=== PATIENT | male | born 1965 | race Caucasian/White ===

== ENCOUNTER 2024-04-17 15:34 | Outpatient (REF) | payer OTHER, SELFPAY ==
[2024-04-17 17:06] LABS: Hematocrit 42.2 % (42.0-52.0); Hemoglobin 14.5 g/dl (14.0-18.0); Mean Corpuscular HGB Conc 34.4 g/dl (31.0-36.0); Mean Corpuscular Volume 90.2 fL (80.0-98.0); Mean Platelet Volume 9.4 fL (9.4-12.4); Platelet Count 284 X10*3/uL (160-400); Red Blood Count 4.68 X10*6/uL (4.60-5.80); Red Cell Distribution Width 13.4 % (11.0-16.0); White Blood Count 8.4 X10*3/uL (4.8-10.8)
[2024-04-17 17:33] LABS: Alanine Aminotransferase 30 U/L (0-40); Albumin Level 4.6 g/dL (3.5-5.0); Aspartate Amino Transferase 28 U/L (5-37); Bilirubin Direct 0.2 mg/dL (0.0-0.5); Bilirubin Total 0.4 mg/dL (0.0-1.0)
[2024-04-17 17:48] LABS: Alkaline Phosphatase 58 U/L (39-117)
[2024-04-19 13:58] LABS: Immunoglobulin A 209 mg/dL (47-310)
[2024-04-19 16:18] LABS: Transglutaminase IgA <1.0 U/mL
== END 2024-04-17 15:35 | disposition home or self-care (01) ==
LOC: HO.LAB 15:34
PROVIDERS: PCP Registered Nurse; Visit Provider Internal Medicine
DX: R10.84 Generalized abdominal pain (principal); R12 Heartburn; K21.9 Gastro-esophageal reflux disease without esophagitis
CPT/HCPCS: 36415; 80076; 82784; 84443; 85027; 86364; 99202

== ENCOUNTER 2024-06-06 08:39 | Outpatient (REF) | payer OTHER, SELFPAY ==
--- NOTE | ~2024-06-06 | US_ITS ---
CLINICAL HISTORY: R10.84 - Generalized abdominal pain US abdomen complete Comparison: None Findings: The visualized pancreas is normal. The aorta and inferior vena cava are normal caliber. The appearance of the liver suggests fatty infiltration without focal lesion. There is no intrahepatic bile duct dilatation. The common duct is 3.5 mm in diameter. The gallbladder is normal. There is no sonographic Tompkins sign. The main portal vein is antegrade. The right kidney is 10.1 cm in length. The left kidney is 11.7 cm in length. The spleen is normal. No ascites. IMPRESSION: 1. Hepatic steatosis. This document has been electronically signed by: Yan Irwin MD on 06/06/2024 18:21:56
== END 2024-06-06 08:40 | disposition home or self-care (01) ==
LOC: HO.HMGCX 08:39
PROVIDERS: PCP Registered Nurse; Visit Provider Internal Medicine
DX: R10.84 Generalized abdominal pain (principal)
CPT/HCPCS: 76700

== ENCOUNTER → 2024-06-06 08:49 | Outpatient (BNV) | payer OTHER, SELFPAY | PROVIDERS: PCP Registered Nurse; Visit Provider Specialist | DX: R10.84 Generalized abdominal pain (principal) | CPT/HCPCS: 76700 ==

== ENCOUNTER 2024-09-20 10:11 | Day surgery (SDC) | payer OTHER, SELFPAY ==
--- OUTSIDE RECORDS SUMMARY | 2024-07-30 15:13 | XMS_ITS | Clinical Summary ---
Author Organization [facility] Address [address] [place] [address] Care Team Providers Care Pier Master Name Role Phone Unavailable Primary Care Provider Unavailabl e Source Comments PLEASE NOTE, if this patient is a minor, it may be UNLAWFUL to discuss sensitive information that is contained in these records (such as FAMILY PLANNING, MENTAL HEALTH or SUBSTANCE ABUSE) with the minor patient's parent or other person without the patient's specific authorization.[facility] Social History Tobacco Use Types Packs/Day Years Used Date Smoking Tobacco: Never Assessed Social Connections Answer Date Recorded Connectedness 0 11/25/2023 Financial Resource Strain Answer Date R ecorded Financial Resource Strain 0 2022 Stress Answer Date Recorded Stress 0 03/21/2022 Physical Activity Answer Date Recorded Physical Activity 0 03/21/2022 Food Insecurity Answer Date Recorded Food 0 12/07/2023 Transportation Needs Answer Date Record ed Transportation 0 03/21/2022 Housing Stability Answer Date Recorded Housing 0 03/21/2022 Safety and Environment Answer Date Ignacio rded Safety 0 03/21/2022 Utilities Answer Date Recorded Utilities 0 03/21/2022 Employment Answer Date Recorded Stress 0 11/25/2023 Sex and Gender Information Value Date Recorded Sex Assigned at Not on file Legal Sex Male 8:24 AM PST Gender Identity Not on file Sexual Orientation Not on file Plan of Treatment Health Maintenance Due Date Last Done Comments Anxiety Screening 1966 Diabetes Screening 1966 Hepatitis C Screening 1966 Lipid Screening 1966 Tobacco Screening 1966 HIV Screening 1981 Hypertension Screening (#1) 1984 Imm-DTaP/Tdap/Td (1 - Tdap) 1985 Imm-Hepatitis B (1 of 3 - 19+ 3-dose series) 6 CT Colonography 12/26/2011 Colonoscopy 12/26/2011 Colorectal Cancer Screening 12/26/2011 FIT/gFOBT 12/26/2011 Fecal DNA 12/26/2011 Flexible Sigmoidoscopy 12/26/2011 Imm-Zoster, Recombinant (1 of 2) 2016 [id number] ( season) 2023 Imm-Influenza (#1) 2023 Alcohol and Drug Screen 03/13/2024 Depression Annual Screen 03/13/2024
[2024-09-18 14:47] VITALS: BMI 28.2
--- NOTE | 2024-09-18 15:22 | P.CONAN_ITS ---
Documented by User: Dania Deleon NP 09/18/24 15:25 HPI - Anesthesia Eval Consult details Narrative: 58 yr old male for Upper Endoscopy. [facility] Active Problems Active Problems: All Active Problems (Updated 09/18/24 @ 14:45 by Azul Atwood RN) GERD (gastroesophageal reflux disease) (Acute) Pyrosis (Acute) Generalized postprandial abdominal pain (Acute) Past Medical History Medical History (Updated 09/18/24 @ 14:45 by Azul Atwood RN) GERD (gastroesophageal reflux disease) Family History Family History Father HTN (hypertension) Stroke Mother HTN (hypertension) Stroke Brother Stroke Brother Tongue cancer Brother Lung cancer Surgical History Surgical History (Updated 09/20/24 @ 11:48 by Lou Toledo RN) No pertinent past surgical history Hx of wisdom tooth extraction Social History Social History Household Members: Family Are you a primary interior plant caretaker to a significant other at home: No Do you presently have visiting nurse or other home services: No Alcohol intake: current Alcohol intake frequency: holidays/special occasions only Patient Tobacco Use Status: Current everyday Tobacco user Tobacco use type: Cigarette Cigarettes Per Day: 2 Years Smoked: 30 Smoked in Last 30 Days: Yes Use of substances other than those prescribed or required for medical reasons: No Have you been hit, kicked, punched, or otherwise hurt by someone within the past year? If so, by whom?: No Are you DNR?: No Advance Directives: No Advance Directives Information Provided: No Advance Directives on File: No Meds Allergies Allergy/AdvReac Type Severity Reaction Status Date / Time No Known Allergies Allergy Verified 09/20/24 11:46 Exam Height,Weight and Vital Signs: Height 5 ft 3 in Weight 72.121 kg Documented by User: Kirill Treviño MD 09/20/24 12:25 [facility] Past Medical History Medical History (Updated 09/18/24 @ 14:45 by Azul Atwood RN) GERD (gastroesophageal reflux disease) Family History Family History Father HTN (hypertension) Stroke Mother HTN (hypertension) Stroke Brother Stroke Brother Tongue cancer Brother Lung cancer Family history of problems with anesthesia: No Surgical History Surgical History (Updated 09/20/24 @ 11:48 by Lou Toledo RN) No pertinent past surgical history Hx of wisdom tooth extraction History of Problems with Anesthesia: No Social History Social History Household Members: Family Are you a primary interior plant caretaker to a significant other at home: No Do you presently have visiting nurse or other home services: No Alcohol intake: current Alcohol intake frequency: holidays/special occasions only Patient Tobacco Use Status: Current everyday Tobacco user Tobacco use type: Cigarette Cigarettes Per Day: 2 Years Smoked: 30 Smoked in Last 30 Days: Yes Use of substances other than those prescribed or required for medical reasons: No Have you been hit, kicked, punched, or otherwise hurt by someone within the past year? If so, by whom?: No Are you DNR?: No Advance Directives: No Advance Directives Information Provided: No Advance Directives on File: No Meds Allergies Allergy/AdvReac Type Severity Reaction Status Date / Time No Known Allergies Allergy Verified 09/20/24 11:46 Exam Airway Mallampati Class: I TM Dist: <=3cm Neck ROM: Full Loose/Missing/Broken Teeth: No Heart: ok Lungs: ok Assessment and Plan Assessment Anesthesia Assessment: Anesthesia Plan Discussed and Chart Reviewed Final Anesthetic Review Family History of Problems with Anesthesia: No History of Problems with Anesthesia: No NPO: Yes ASA Class: II Final Preanesthetic Review: No Changes in Pt Med Stat, Meds/Allgs Chart Reviewed, Consent Obtained/Reviewed and Anes Risks/Benef Reviewed Patient Risk: Intermediate Procedure Risk: Intermediate Anesthetic Plan Anesthetic Plan: Agree w/ Assess. and Plan and TIVA Disposition: Standard PACU
[2024-09-20 11:49] VITALS: BP 137/73; PULSE 68; RESP 16; TEMP 36.4; O2SAT 98; BMI 27.5
--- NOTE | 2024-09-20 12:03 | P.HPSUR_ITS ---
Pre-Procedural Eval Section A - 24 Hr Update-Section A only Date of Service: 09/20/24 Section B - Complete if H&P > 30 days Chief Complaint: Gastro-esophageal reflux disease without esophagit Details of Present Illness: Family History Father HTN (hypertension) Stroke Mother HTN (hypertension) Stroke Brother Stroke Brother Tongue cancer Brother Lung cancer Allergies: Allergies Allergy/AdvReac Type Severity Reaction Status Date / Time No Known Allergies Allergy Verified 09/20/24 11:46 Review of Systems Review of Systems Comment: Ten point ROS negative Exam Exam Comment: Gen appear: No acute distress HEENT: no icterus Chest: No overt resp distress Abd: soft, nontender, nondistended Psych: Stable affect, answering questions appropriately Neuro: A/Ox3 noted to move all extremities spontaneously Ext: no peripheral edema Plan Diagnosis/Plan: Unchanged I have reviewed the history and physical and performed a pertinent physical examination on my patient. No changes have occurred unless specified. Time Spent With Patient Time: Total time managing care of this patient today ____ minutes.
[2024-09-20] MEDS: Lactated Ringers 1,000 ML 100 ML IVCONT (12:10)
--- NOTE | 2024-09-20 13:18 | P.OP_ITS ---
Operative Note Operative Note Date of Service: 09/20/24 Narrative: Procedure: Esophagogastroduodenoscopy Endoscopist: Aissatou Wylie MD Indication: GERD Anesthesia Provider: Kirill Treviño MD Anesthesia Type: MAC ?? EGD Procedure:?? The procedure, indications, preparation and potential complications were reviewed with the patient with the help of Togolese costumer, who indicated understanding and gave written informed consent to proceed. A physical exam was performed. The endoscope was introduced through the mouth, and advanced to the second part of duodenum. The mucosa was carefully examined on slow withdrawal of the endoscope. The patient tolerated the procedure well. There were no immediate complications.? ? EGD Findings:? * Esophagus:? Small erosions measuring less than 5 mm noted at GE junction.. The Z line was at 34 cm and irregular to 33 cm. Cold forceps biopsies were taken from the GE junction rule out Cole's esophagus. , moderate size hiatal hernia was noted with a diaphragmatic pinch at 40 cm. * Stomach:? Normal mucosa was noted in the stomach. Retroflexion was performed in the cardia that showed Hill grade 3 hiatal hernia. * Duodenum:? Normal mucosa was noted in the whole of the examined duodenum. ? EGD Impressions:? * Grade A esophagitis. * Irreglar Z line r/o BE (biopsy) * Normal stomach (biopsy) * Normal duodenum ?? Recommendations:?? * Follow biopsy results. Our office will call or send a letter with results within 7-10 days. * Continue PPI therapy. * If H pylori +, patient will be prescribed eradication therapy followed by test of cure. * Avoid NSAIDs. Above has been reviewed with the patient.
[2024-09-20 13:20] VITALS: BP 107/64; PULSE 82; RESP 18; TEMP 36.5; O2SAT 94
[2024-09-20 13:35] VITALS: BP 114/73; PULSE 73; RESP 16; O2SAT 96
--- NOTE | 2024-09-20 14:43 | HO.INF ---
Dutch grid caster utilized
== END 2024-09-20 15:33 | disposition home or self-care (01) ==
PROVIDERS: PCP Registered Nurse; Visit Provider Internal Medicine
PROC: 0DJ08ZZ Inspection of Upper Intestinal Tract, Via Natural or Artificial Opening Endoscopic (ICD-10-PCS; CPT 43235; principal; 2024-09-20 12:40)
DX: K21.9 Gastro-esophageal reflux disease without esophagitis (principal); K29.60 Other gastritis without bleeding; K22.10 Ulcer of esophagus without bleeding; K22.9 Disease of esophagus, unspecified; K44.9 Diaphragmatic hernia without obstruction or gangrene; F17.210 Nicotine dependence, cigarettes, uncomplicated; Z79.899 Other long term (current) drug therapy
CPT/HCPCS: 43239; 88305; 88313; 88342; J2003; J2704

== ENCOUNTER → 2024-09-20 10:11 | Outpatient (BNV) | payer OTHER, SELFPAY | PROVIDERS: PCP Registered Nurse; Visit Provider Internal Medicine | DX: K21.00 Gastro-esophageal reflux disease with esophagitis, without bleeding (principal); K22.89 Other specified disease of esophagus | CPT/HCPCS: 43239 ==

== ENCOUNTER 2024-10-14 10:42 | Outpatient (AMB) | payer OTHER, SELFPAY ==
[2024-10-14 10:43] VITALS: BP 139/79; PULSE 71; BMI 26.9
--- NOTE | 2024-10-14 10:43 | MHC.OFFVIS ---
Vital Signs 10/14/24 10:43 Height 5 ft 3 in Weight 152 lb 1.903 oz BMI 26.9 BP 139/79 Blood Pressure Location Lt brachial Position Sitting Pulse 71 Intake Visit Reasons: EGD; Intake Note: Zenaida presents in the office as a follow up EGD. CC: States that he is here for results - states that he takes omeprazole at night. States he still has heartburn when he eats the spicey foods. Refrigeration Plant Cork Insulator Required: Yes Allergies No Known Allergies Allergy (Verified 09/20/24 11:46) HPI Comments Details: 58 y.o M who is here for upper GI sx. Seen with the help of online Cleo science interpreter. Reports hx of pyrosis 2 years ago when moved to [place]. Occurs almost on a daily basis now. Triggered by food. Assoc with nausea, burping. Lasts for almost the whole day. Sticks to soups etc but doesn't make a difference. On pepcid 20 OTC which hasnt helped. PRN omeprazole. CRC screening- per referral documentation cologuard ordered by PCP. 09/20/24: Grade A esophagitis. Irreglar Z line r/o BE (biopsy) Normal stomach (biopsy) Normal duodenum ?? Immunostain for H. pylori is non-reactive (A). Electronically Signed By: Franco Whittington MD 09/25/24 8423 Diagnosis A. Stomach, random, biopsy: Antral-type and oxyntic mucosa with moderate chronic inactive inflammation. B. EG junction, biopsy: - Cardiac-type mucosa with moderate chronic inactive inflammation; no intestinal metaplasia seen. - Active esophagitis (maximum eosinophil count 2 per high powered field). Comment: H. pylori studies will be addended on part A 10/14/24: Here for follow up. Refrigeration Plant Cork Insulator InRe[employer] online. [id number] Results of the EGD reviewed. NO velasco's no H pylor. Pt continues to take omeprazole daily. Reviewed that will likely need this indefinitely. Barium swallow from 2023 reviewed. Dysmotility, and HH. No narrowing or stricture. US Abd with hepatic steatosis but normal LFTs. [facility] Medical History (Updated 10/14/24 @ 11:26 by Aissatou Wylie MD) GERD (gastroesophageal reflux disease) Surgical History (Updated 10/14/24 @ 10:48 by MORENITA Kulkarni) History of esophagogastroduodenoscopy (EGD) No pertinent past surgical history Hx of wisdom tooth extraction Family History Father HTN (hypertension) Stroke Mother HTN (hypertension) Stroke Brother Stroke Brother Tongue cancer Brother Lung cancer Social History Household Members: Family Are you a primary wound care center consultant to a significant other at home: No Do you presently have visiting nurse or other home services: No Alcohol intake: current Alcohol intake frequency: holidays/special occasions only Patient Tobacco Use Status: Current everyday Tobacco user Tobacco use type: Cigarette Cigarettes Per Day: 2 Years Smoked: 30 Review of Systems Const All systems reviewed & are unremarkable except as noted in HPI and below Physical Exam Exam Exam: No apparent distress Nonicteric Abdomen soft, nondistended Alert and oriented x3, normal gait Vital Signs: Last Vital Signs Pulse 71 10/14/24 10:43 BP 139/79 10/14/24 10:43 BMI result Body Mass Index 26.9 Assessment & Plan Assessment & Plan (1) Pyrosis: Code(s): R12 - Heartburn Category: Medical (2) GERD (gastroesophageal reflux disease): Code(s): K21.9 - Gastro-esophageal reflux disease without esophagitis Category: Medical (3) Generalized postprandial abdominal pain: Code(s): R10.84 - Generalized abdominal pain Category: Medical (4) Esophagitis: Code(s): K20.90 - Esophagitis, unspecified without bleeding Category: Medical (5) Encounter for colorectal cancer screening: Code(s): Z12.11 - Encounter for screening for malignant neoplasm of colon; Z12.12 - Encounter for screening for malignant neoplasm of rectum Category: Medical (6) Fatty (change of) liver, not elsewhere classified: Code(s): K76.0 - Fatty (change of) liver, not elsewhere classified Category: Medical Plan Pt with endoscopy proven gerd and esophagitis. Getting better on PPI therapy. Referring note mentioned CRC screening through cologuard, but pt reports not done yet. US abd with steatosis, but normal LFTs argue against any ongoing inflammation. Plan: - Take omeprazole 20 mg once daily on empty stomach x 8-12 weeks. Can considering lowering to 10 mg once daily after that. - Pt aware will need it lifelong - Advised to follow up with PCP for pending cologuard or to return to office if changes mind for colonoscopy - Can get yearly LFTs through PCP as part of physical PRN follow up Coding Level of Care Code Est Pt Level 4 (25217) Diagnoses Pyrosis R12 GERD (gastroesophageal reflux disease) K21.9 Generalized postprandial abdominal pain R10.84 Esophagitis K20.90 Encounter for colorectal cancer screening Z12.11; Z12.12 Fatty (change of) liver, not elsewhere classified K76.0
--- OUTSIDE RECORDS SUMMARY | 2024-10-14 11:33 | XMS_ITS | Clinical Summary ---
Author Organization [place] [address] [address] [facility] Building Address [address] [place] [address] Phone Care Team Providers Care Glue Line Operator Name Role Phone No Bradford MD Primary Care Provider [phone] Allergies No known active allergies Medications omeprazole (PriLOSEC) [address] capsule Take 1 capsule (20 mg total) by mouth 1 (one) time each day. Active Active Problems Problem Noted Date Diagnosed Date Gastroesophageal reflux dise ase with esophagitis without hemorrhage 09/30/2024 Tobacco use disorder 09/30/2024 Arachnoiditis 08/31/2023 Overview (09/30/2024): Per patient, diagnosed in the [facility] in 2003 GERD (gastroesophageal reflux disease) 4 Ribs, multiple fractures 08/31/2023 Overview (09/30/2024): 06/2023 per patient Right 10th and 11th Encounters Date Type Department Care Team Description 09/30/2024 2:00 PM EDT [facility] [phone] Zuleika Razo NP Gastroesophageal reflux disease with esophagitis without hemorrhage (Primary Dx); Tobacco use disorder 09/30/2024 Telephone [facility] ABSTRA[facility] Haydee Arguello MA 09/20/2024 Telephone Internal Medicine - [address] [phone] No Bradford MD Hospital Follow-up from Last 3 Months Immunizations Name Administration Dates Next Due Tdap Tetanus diptheria acell ular pertussis (Boostrix; Adacel) 7yo and older 08/31/2023 Surgical History Surgery Date Site/Laterality Comments WISDOM TOOTH EXTRACTION PROCEDURE: HISTORICAL WISDOM TEETH EXTRACTION Medical History Medical History Date Comments Esophageal reflux DX:Esophageal reflux Family History Medical History Relation Name Comments Other: cancer tongue Brother 1 Stroke Brother 1 Lung cancer Brother 2 Hypertension Father Stroke Father Hypertension Mother Stroke Mother Relation Name Status Comments Brother 1 Brother 2 Alive Brother 3 Alive Brother 4 Alive Brother 5 Alive Father Mother Social History Tobacco Use Types Packs/Day Years Used Date Smoking Tobacco: Never Assessed Sex and Gender Information Value Date Recorded Sex Assigned at Not on file Legal Sex Male 11:08 AM EDT Gender Identity Not on file Sexual Orientation Not on file Obstetrics History Last Filed Vital Signs Vital Sign Reading Time Taken Comments Blood Pressure 116/72 09/30/2024 2:06 PM EDT A Pulse 74 09/30/2024 2:06 PM EDT Temperature - - Respiratory Rate - - Oxygen Saturation - - Inhaled Oxygen Concentration - - Weight 71.8 kg (158 lb 6.4 oz) 09/30/2024 2:06 P M EDT Height 165.1 cm (5' 5 ) 09/30/2024 2:06 PM EDT Body Mass Index 26.36 09/30/2024 2:06 PM EDT Plan of Treatment Upcoming Encounters Date Type Department Care Team (Late st Contact Info) Description 10/24/2024 2:15 PM EDT Appointment [facility] CT Scan [address] [place] [phone] 10/24/2024 2:45 PM EDT Clinical Support Lung Screening Program - [place] [address] [facility] [address] [place] [phone] 12/31/2024 3:00 PM EDT Consult Gastroenterology - [place] [address] [facility] [address] [facility] [address] [place] [phone] Phoebe Winslow, TALIA [address] [facility] [address] [place] [address] Health Maintenance Due Date Last Done Comments Hepatitis B Vaccines (1 of 3 - 19+ 3-dose series) 1985 Pneumococcal Vaccine: 50+ Ye ars (1 of 1 - PCV) 2016 Zoster Vaccines (1 of 2) 2016 HIV Screening 10/04/2023 Social Influencers of Health Screening 10/04/2023 COVID-19 Vaccine (1 - 2023-2 5 season) 2023 Depression Screening 03/13/2024 Influenza Vaccine (#1) 2024 Cholesterol Screening (Lipid Panel) 08/30/2028 08/31/2023 DTaP,Tdap,and Td Vaccines (2 - Td or Tdap) 08/30/2033 08/31/2023 Colorectal Cancer Screening: Colonoscopy 09/20/2034 09/20/2024 Hepatitis C Screening Completed 08/31/2023 HIB Vaccines Aged Out No longer eligi ble based on patient's age to complete this topic HPV Vaccines Aged Out No longer eligi ble based on patient's age to complete this topic Hepatitis A Vaccines Aged Out No long er eligible based on patient's age to complete this topic IPV Vaccines Aged Out No longer eligi ble based on patient's age to complete this topic MMR Vaccines Aged Out No longer eligi ble based on patient's age to complete this topic Meningococcal ACWY Vaccine Aged Out N o longer eligible based on patient's age to complete this topic Meningococcal B Vaccine Aged Out No l onger eligible based on patient's age to complete this topic RSV Immunization Patients Un marlon 20 months Aged Out No longer eligible b ased on patient's age to complete this topic Varicella Vaccines Aged Out No longer eligible based on patient's age to complete this topic Procedures Procedure Name Priority Date/Time Associated Diagnosis Comments COLONOSCOPY Routine 09/20/2024 1:59 PM EDT HEPATITIS C SCREENING Routine 08/31/2023 LIPID PANEL Routine 08/31/2023 from Last 3 Months or Most Recently Relevant to Health Maintenance Results * COLONOSCOPY (09/20/2024 1:59 PM EDT) Anatomical Region Laterality Modality Endoscopy Aissatou Wylie MD GI~PROCEDURE ORDERABLES Final Re sult * Hepatitis C Screening (08/31/2023) Hepatitis C Screening negative Historical Provider HEALTH MAINTENANCE Final Result * Lipid panel (08/31/2023) LDL/HDL Ratio 3 Triglycerides 61 mg/dL Cholesterol 198 mg/dL HDL 68 mg/dL LDL Cholesterol 118 mg/dL Blood Venous blood specimen / Unknown Historical Provider LAB BLOOD ORDERABLES Yudy l Result from Last 3 Months or Most Recently Relevant to Health Maintenance Insurance [facility] Care Teams Glue Line Operator Relationship Specialty Start Date End Date No Bradford MD [address] [place] [address] PCP - General Internal Medicine 09/20/24
--- OUTSIDE RECORDS SUMMARY | 2024-10-14 11:33 | XMS_ITS | Clinical Summary ---
Author Organization [facility] Address [address] [place] [address] Care Team Providers Care Community Health Nurse Staff Name Role Phone Unavailable Primary Care Provider [...] 12/26/2011 Fecal DNA 12/26/2011 Flexible Sigmoidoscopy 12/26/2011 Imm-Pneumococcal 50+ (1 of 1 - PCV) 2016 Imm-Zoster, Recombinant (1 of 2) 2016 [id number]-17 (1 - 2023- season) 2023 Alcohol and Drug Screen 03/13/2024 Depression Annual Screen 03/13/2024 Imm-Influenza (#1) 2024
== END 2024-10-14 12:24 | disposition home or self-care (01) ==
LOC: HO.HGI 10:43
PROVIDERS: PCP Registered Nurse; Visit Provider Internal Medicine
DX: R12 Heartburn (principal); K21.9 Gastro-esophageal reflux disease without esophagitis; R10.84 Generalized abdominal pain; K20.90 Esophagitis, unspecified without bleeding; K76.0 Fatty (change of) liver, not elsewhere classified
CPT/HCPCS: 99214

== ENCOUNTER → 2024-10-14 10:42 | Outpatient (BNVA) | payer OTHER, SELFPAY | PROVIDERS: PCP Registered Nurse; Visit Provider Internal Medicine | DX: Z71.2 Person consulting for explanation of examination or test findings (principal); R12 Heartburn; K21.9 Gastro-esophageal reflux disease without esophagitis; R10.84 Generalized abdominal pain; K20.90 Esophagitis, unspecified without bleeding | CPT/HCPCS: 99212 ==